=== PATIENT | female | born 1985 | race African-American/Black ===

== ENCOUNTER 2021-06-30 20:13 | Emergency (ER) | payer OTHER ==
[~2021-06-30] VITALS: Ht 167.6 cm; Wt 72.6 kg
[2021-06-30] MEDS ORDERED: CYCL10 PO (21:06)
[2021-06-30] MEDS ORDERED: IBUP600 PO (21:11)
== END 2021-06-30 21:19 | disposition home or self-care (01) ==
LOC: ER 20:13
DX: S63.502A Unspecified sprain of left wrist, initial encounter (principal); X50.0XXA Overexertion from strenuous movement or load, initial encounter
CPT/HCPCS: 73110; 96372; 99283-25; J1885

== ENCOUNTER 2021-07-17 02:43 | Emergency (ER) | payer OTHER ==
[~2021-07-17] VITALS: Ht 167.6 cm; Wt 68.0 kg
[~2021-07-17 02:43] MED LIST: CYCL10 PO; IBUP600 PO
== END 2021-07-17 07:10 | disposition home or self-care (01) ==
LOC: ER 02:43
DX: M25.532 Pain in left wrist (principal); Z02.79 Encounter for issue of other medical certificate
CPT/HCPCS: 73110